=== PATIENT | female | born 1960 | race Caucasian/White ===

== ENCOUNTER → 2018-11-29 | Outpatient (CLI) | payer BC ==
[~2018-11-29] MED LIST: ASMANEX TW110 MCG/Ac IH; BENADRYL50 MG; EXCEDRIN1 TAB PO; NAPROSYN 2250 MG/TAB PO; PROAIR HFA0.09 MG/AC IH; SINGULAIR 110 MG/TAB PO; [UNRECOGNIZED DRUG - MIXTURE] PO
== END ==
LOC: COL.RAD 11:53
DX: N85.00 Endometrial hyperplasia, unspecified (principal); N95.0 Postmenopausal bleeding

== ENCOUNTER 2019-05-09 19:28 | Emergency (ER) | payer BC ==
[~2019-05-09] VITALS: Ht 170.2 cm; Wt 81.4 kg
[2019-05-09 20:12] VITALS: BP 121/67; PULSE 87; TEMP 97.5
== END 2019-05-09 21:21 | disposition home or self-care (01) ==
LOC: COL.ER 19:28 → EDSTATUS 19:59 → COL.ER 21:21
DX: Z20.3 Contact with and (suspected) exposure to rabies (principal); Z23 Encounter for immunization
CPT/HCPCS: 90375

== ENCOUNTER 2019-05-23 21:09 | Outpatient (RCR) | payer BC ==
[2019-05-23 22:29] VITALS: BP 132/68; PULSE 86; TEMP 98.1
== END 2019-08-10 | disposition home or self-care (01) ==
LOC: EUO
DX: Z23 Encounter for immunization (principal); Z20.3 Contact with and (suspected) exposure to rabies

== ENCOUNTER 2020-10-16 08:57 | Outpatient (CLI) | payer BC ==
[~2020-10-16] VITALS: Ht 170.2 cm; Wt 79.1 kg
[2020-10-16 09:57] VITALS: BP 119/85; PULSE 73; TEMP 98.2
[2020-10-16] MEDS ORDERED: TAMBOCOR50 MG PO (10:04)
[2020-10-16] MEDS ORDERED: TYLENOL 500MG500 MG PO (10:05)
[2020-10-16] MEDS ORDERED: TOPROL XL 25MG25 MG PO (10:09)
[2020-10-16] MEDS ORDERED: CLARITIN 1010 MG/TAB PO (10:10)
[2020-10-16] MEDS ORDERED: FLONASEALLERGY NS (10:12)
[2020-10-16] MEDS ORDERED: FLOVENT 110MCG7.9 GM IH (10:13)
[2020-10-16] MEDS ORDERED: ASPIRIN 81M81 MG/TA2 PO (10:14)
[2020-10-16] MEDS ORDERED: CARDIZEM 60MG T60 MG PO (10:14)
[2020-10-16 11:05] VITALS: BP 123/66; PULSE 72
--- NOTE | 2020-10-16 11:19 | NUR ---
Discharge instructions given to pt.Pt verbalizes understanding.Pt escorted out via ambulatory by this nurse.
== END 2020-10-16 11:20 | disposition home or self-care (01) ==
LOC: COL.CAR 08:57
DX: R00.2 Palpitations (principal); R55 Syncope and collapse; J45.909 Unspecified asthma, uncomplicated; I49.3 Ventricular premature depolarization; I49.1 Atrial premature depolarization; M19.90 Unspecified osteoarthritis, unspecified site; F41.9 Anxiety disorder, unspecified; Z79.899 Other long term (current) drug therapy; Z79.82 Long term (current) use of aspirin; Z88.0 Allergy status to penicillin; Z85.3 Personal history of malignant neoplasm of breast; Z90.10 Acquired absence of unspecified breast and nipple; Z88.8 Allergy status to other drugs, medicaments and biological substances; Z88.2 Allergy status to sulfonamides; Z82.79 Family history of other congenital malformations, deformations and chromosomal abnormalities
CPT/HCPCS: 27124; C1764